=== PATIENT | female | born 1995 | race Caucasian/White ===

== ENCOUNTER 2019-09-18 22:54 | Emergency (ER) | payer OTHER, SELFPAY ==
[2019-09-18 23:05] VITALS: BP 122/75; PULSE 80; RESP 16; TEMP 35.8; O2SAT 100
--- NOTE | 2019-09-18 23:17 | ED.PREGNANCY ---
HPI - General Chief complaint: Vaginal Bleeding Stated complaint: poss miscarriage Time Seen by Provider: 09/18/19 23:09 Source: patient and RN notes reviewed Mode of arrival: ambulatory Limitations: no limitations History of Present Illness HPI Narrative: Pt is a 24 y/o female who is G3, P2, who presents to the ED with c/o vaginal bleeding starting this evening. She notes that her LMP was 08/14/19, and states that she has since had several positive and negative tests. Pt notes that she began having vaginal bleeding earlier today. She reports lower ABD cramping accompanying her bleeding, but states that her pain resolved after passing a large clot of blood. Pt notes that she is concerned she may be having a miscarriage. She currently denies any fever, chills, or vomiting. Pt follows with REHABILITATION PROGRAM MANAGER, Dr. Liang. Complaint: vaginal bleeding Onset (ago): hour(s) (several) Associated symptoms: abdominal pain (lower ABD cramping (resolved)) Vaginal bleeding: clots Date of Last Menstrual Period: 08/14/19 Related Data Allergies Allergy/AdvReac Type Severity Reaction Status Date / Time peanut Allergy Severe anaphylaxis Verified 06/04/18 01:36 Review of Systems Review of Systems: All systems reviewed & are unremarkable except as noted in HPI and below Constitutional: Constitutional: Denies chills and Denies fever(s) Gastrointestinal: Gastrointestinal: Reports abdominal pain (lower ABD cramping (resolved)) and Denies vomiting Genitourinary: Genitourinary: Reports abnormal vaginal bleeding PMFSH Past Medical History Medical History 3 UTI (urinary tract infection) Surgical History Surgical History No significant past surgical history Social History Social History Smoking status: Former smoker Gender identity (if verbalized by the patient): Female Exam Narrative: Exam Narrative: APPEARANCE: No acute distress, nontoxic, resting in bed EYES: EOMI HEENT: Normocephalic, atraumatic, OMM RESPIRATORY: No respiratory distress Clear to auscultation bilaterally with no rhonchi wheezing or rales. CARDIOVASCULAR: Regular rate and rhythm without murmurs rubs or gallops. ABDOMINAL: Soft, nontender, nondistended, no rebound or guarding MUSCULOSKELETAl: Moves all extremities. No clubbing, cyanosis or edema. NEURO: Awake and alert. Following commands, speech normal, no focal deficits SKIN:: Warm, dry. No rashes lesions or abrasions PSYCHIATRIC: Normal affect/mood, Course Course Emergency Course: Patient with normal beta-hCG in the emergency department. At this time suspect the patient has had dysfunctional uterine bleeding and will discharge to follow-up with her REHABILITATION PROGRAM MANAGER Patient has had no pain while in ED Discussed with patient results of workup and diagnosis. Discussed need for follow-up with primary care, proper use of medication, and reasons to return to the emergency department. Patient understands and agrees to current treatment plan Vital Signs Vital signs: Vital Signs Temperature 96.5 F L 09/18/19 23:05 Pulse Rate 80 09/18/19 23:05 Respiratory Rate 16 09/18/19 23:05 Blood Pressure 122/75 09/18/19 23:05 Pulse Oximetry 100 09/18/19 23:05 Temperature 96.5 F L 09/18/19 23:05 Pulse Rate 80 09/18/19 23:05 Respiratory Rate 16 09/18/19 23:05 Blood Pressure 122/75 09/18/19 23:05 Pulse Oximetry 100 09/18/19 23:05 MDM - OB/Uterine Contractions Lab Data Result diagrams: 09/18/19 23:29 09/18/19 23:29 Labs: Lab Results 09/18/19 09/18/19 Range/Units 23:29 23:29 WBC 9.5 (4.5-10.0) K/mm3 RBC 4.36 (4.2-5.4) M/mm3 Hgb 12.5 (12.0-15.0) g/dL Hct 39.2 (37.0-47.0) % MCV 89.9 (80-100) fl MCH 28.7 (26-34) pg MCHC 31.9 L (32-36) g/dl RDW 13.6 (11.5-14.5) % Plt Count 2
[2019-09-18 23:37] LABS: Basophils Absolute Auto 0.1 K/mm3 (0.0-0.1); Basophils Percent Auto 0.6 % (0.2-1.2); Eosinophils Absolute Auto 0.4 K/mm3 (0-0.3); Eosinophils Percent Auto 3.9 % (0-4.4); Hematocrit 39.2 % (37.0-47.0); Hemoglobin 12.5 g/dL (12.0-15.0); Immature Granulocyte Absolute 0.02 K/mm3 (0.00-0.031); Immature Granulocyte Percent A 0.2 % (0-0.5); Lymphocytes Percent Auto 22.2 % (18.3-44.2); Mean Corpuscular HGB Conc 31.9 g/dl (32-36); Mean Corpuscular Hemoglobin 28.7 pg (26-34); Mean Corpuscular Volume 89.9 fl (80-100); Mean Platelet Volume 12.6 fl (7.4-10.4); Monocytes Absolute Auto 0.6 K/mm3 (0.1-0.6); Monocytes Percent Auto 6.4 % (2.6-8.5); Neutrophils Absolute Auto 6.3 K/mm3 (1.3-6.7); Neutrophils Percent Auto 66.7 % (45.5-73.1); Platelet Count Result 205 k/mm3 (150-375); Red Blood Count 4.36 M/mm3 (4.2-5.4); Red Cell Distribution Width 13.6 % (11.5-14.5); White Blood Count 9.5 K/mm3 (4.5-10.0)
[2019-09-18 23:49] LABS: Blood Urea Nitrogen 12 mg/dL (7-17); Calcium 8.9 mg/dL (8.4-10.2); Carbon Dioxide 27 mmol/L (22-30); Chloride 108 mmol/L (98-107); Estimated CRCL calculation 75 ml/min; Estimated Glomerular Filt Rate > 60; Glucose 95 mg/dL (65-105); Potassium 4.1 mmol/L (3.4-5.0); Sodium 139 mmol/L (137-145)
[2019-09-19 00:06] LABS: Beta HCG Quantitative < 2.39 mIU/ML
[2019-09-19 01:45] VITALS: BP 101/77; PULSE 69; RESP 18; O2SAT 100
== END 2019-09-19 01:50 | disposition home or self-care (01) ==
PROVIDERS: Emergency Provider Emergency Medicine; PCP Obstetrics & Gynecology
DX: N93.8 Other specified abnormal uterine and vaginal bleeding (principal); Z87.440 Personal history of urinary (tract) infections; Z87.891 Personal history of nicotine dependence
CPT/HCPCS: 36415; 80048; 81025; 84702; 85025; 99283

== ENCOUNTER 2020-02-15 20:45 | Emergency (ER) | payer OTHER, SELFPAY ==
[2020-02-15 21:12] VITALS: BP 104/73; PULSE 89; RESP 18; TEMP 37; O2SAT 100
[2020-02-15 22:35] VITALS: BP 109/71; PULSE 78; RESP 16; TEMP 37.2; O2SAT 100
[2020-02-16] VITALS: RESP 17; O2SAT 100
--- NOTE | 2020-02-16 00:39 | ED.GENADULT ---
HPI - General Adult General Chief complaint: Unspecified Stated complaint: needs tested for covid Time Seen by Provider: 02/16/20 00:18 Source: patient Mode of arrival: ambulatory Limitations: no limitations History of Present Illness HPI narrative: This patient is 24 year old female who presents for evaluation of intermittent headache and runny nose. She states she has had frontal head x 2 days. Her headache resolves after taking ibuprofen. She states she has runny nose that is intermittent. Her nasal congestion and sinus pressure resolve with benadryl. She believes her issue is sinus disease as she has mild sinus pressure intremittently. She states she want to come to ER to decide if she needed a covid test. She denies fever, chest pain, sob, abdominal , nausea, vomiting. She denies loss of taste or smell. She denies sick contacts. Related Data Allergies Allergy/AdvReac Type Severity Reaction Status Date / Time peanut Allergy Severe anaphylaxis Verified 06/04/18 01:36 Review of Systems Review of Systems: All systems reviewed & are unremarkable except as noted in HPI and below Constitutional: Constitutional: Denies chills and Denies fever(s) ENT: Denies dizziness, Denies epistaxis, Reports nasal congestion and Denies sore throat Cardiovascular: Cardiovascular: Denies chest pain Respiratory: Respiratory: Denies cough, Denies dyspnea and Denies wheezing Gastrointestinal: Gastrointestinal: Denies abdominal pain, Denies diarrhea, Denies nausea and Denies vomiting Neurologic: Reports headache(s) [facility] Social History Social History (Updated 02/16/20 @ 00:44 by Jennifer Ingram MD) Smoking packs per day: 2 Smoking cigarettes per day: 40.0 Smoking status: Current every day smoker Gender identity (if verbalized by the patient): Female Exam Narrative: Exam Narrative: GENERAL: Well-appearing, well-nourished, and in no acute distress. HEAD: Normocephalic, atraumatic EYES: PERRLA and EOMI, conjunctiva clear without discharge EARS: TM's clear bilaterally without erythema or dullness NOSE: Nares clear, no rhinorrhea or epistaxis THROAT:Mucous membranes moist, Oropharynx normal without erythema, exudate, peritonsillar swelling or fluctuance NECK: Supple, without lymphadenopathy or mass RESPIRATORY: No respiratory distress, Airway patent, Respirations non-labored, Clear to auscultation without rales, rhonchi or wheeze HEART: Regular rate and rhythm. No murmur heard. Normal peripheral pulses. ABDOMEN: Soft, nontender, nondistended, normal active bowel sounds. No masses. No rebound or guarding, No organomegaly. EXTREMITIES: No edema, normal strength with full range of motion. SKIN: Warm, dry, normal color without rash NEURO: Alert and oriented x3. CN 2-12 grossly intact. No focal deficits. PSYCH: Normal mood and affect. Course Reevaluation(s) Reevaluation #1: I discussed with patient that she can be tested for covid if she wants. She has decided not to be tested. She was given return precautions. She has not complaints now. Date: 02/16/20 Time: 00:44 Vital Signs Vital signs: Vital Signs Temperature 98.6 F 02/15/20 21:12 Pulse Rate 89 02/15/20 21:12 Respiratory Rate 18 02/15/20 21:12 Blood Pressure 104/73 02/15/20 21:12 Pulse Oximetry 100 02/15/20 21:12 Temperature 98.9 F 02/15/20 22:35 Pulse Rate 97 02/16/20 01:21 Respiratory Rate 14 02/16/20 01:21 Blood Pressure 111/80 02/16/20 01:21 Pulse Oximetry 100 02/16/20 01:21 Medical Decision Making Vital Signs Vital Signs: Vital Signs Temperature 98.6 F 02/15/20 21:12 Pulse Rate 89 02/15/20 21:12 Respiratory Rate 18 02/15/20 21:12 Blood Pressure 104/73 02/15/20 21:12 Pulse Oximetry 100 02/15/20 21:12 Temperature 98.9 F 02/15/20 22:35 Pulse Rate 97 02/16/20 01:21 Respiratory Rate 14 02/16/20 01:21 Blood Pressure 111/80 02/16/20 01:21 Pulse Oximetry 100 02/16/20 01:21
[2020-02-16 01:21] VITALS: BP 111/80; PULSE 97; RESP 14; O2SAT 100
== END 2020-02-16 01:05 | disposition home or self-care (01) ==
PROVIDERS: Emergency Provider General Practice
DX: J32.9 Chronic sinusitis, unspecified (principal); F17.210 Nicotine dependence, cigarettes, uncomplicated
CPT/HCPCS: 99281

== ENCOUNTER 2024-08-09 12:50 | Emergency (ER) | payer OTHER, SELFPAY ==
--- NOTE | ~2024-08-09 | US_ITS ---
EXAMINATION: US OB follow up DATE: 08/09/2024 14:04 INDICATION: Decreased movement. TECHNIQUE: Real-time ultrasound of the pelvis was performed. COMPARISON: None. FINDINGS: There is a single living fetus in vertex presentation. The placenta is posterior and fundal. The cer vical length is 3.3 cm on transabdominal images, which is normal. heart rate is beats per minut e (bpm). The amniotic fluid volume is subjectively normal. The following biometric data were obtained: Biparietal diameter (BPD): 4.2 cm; head circumference (HC): 16.0 cm; abdominal circumference (AC): 14 .4 cm; femur length (FL): 3.0 cm. These measurements are concordant. Estimated weight is 287 g +/- 43 g, which correlates with the 66th percentile when 01/03/25 is u sed as estimated date of delivery. As single measurements, these parameters are each equal to the following estimated gestational ages: BPD: 18 weeks 5 days. HC: 18 weeks 6 days. AC: 19 weeks 5 days. FL: 19 weeks 1 days. estimated gestational age based solely on measurements from this exam is 19 weeks 1 days +/- 1 weeks 2 days. IMPRESSION: 1. Single living fetus in vertex presentation. 2. Estimated weight is 287 g +/- 43 g, which correlates with the 66th percentile when 01/03/25 is used as estimated date of delivery. Reviewed, dictated and finalized at location A. HOUSE TECHNICIAN IMPRESSION: 1. Single living fetus in vertex presentation. 2. Estimated weight is 287 g +/- 43 g, which correlates with the 66th pe rcentile when 01/03/25 is used as estimated date of delivery.
--- OUTSIDE RECORDS SUMMARY | 2024-08-09 12:55 | XMS_ITS ---
Author Organization [facility] Address [address] [place] [address] Care Team Providers Care Paper Goods Machine Operator Name Role Phone Ilda Alfredo Primary Care Provider REASON FOR VISIT appointment Encounters Encounter Location Date Provider Diagnosis [facility] [address] [place] [address] 06/19/2024 Ilda Alfredo Plan Of Treatment No Information Progress Notes * Randi KENDALLDOB:1995 (28 yo F)Acc No.[id number]:06/19/2024 Patient: Nancy Randi THOMPSON :1995 A ge:28 Y S ex:Female Address:[address] [place] [address], [id number] * true * Date: Generated for Bienvenidoi priscilla/Suzie/eTransmitting on: 0 08/09/2024 12:55 PM DAIRY MANAGER
--- OUTSIDE RECORDS SUMMARY | 2024-08-09 12:55 | XMS_ITS | Patient Health Record ---
Author Organization [facility] Address [address] [place] [address] Care Team Providers Care Play Leader Name Role Phone Ilda Alfredo Primary Care Provider Reason For Referral No Information Encounters Encounter Location Date Provider Diagnosis [facility] [address] [place] [address] 06/19/2024 Ilda Alfredo Plan Of Treatment No Information Insurance Providers Payer Name Payer Address Payer Phone Subscriber Number Group Number Insured Name Patient Relationship to Insured Coverage Start Date Coverage End Date MEDICAID [address] [place] [address] [id number] Randi Kendall Self - patient is the insured 4 MED[employer] [address] [place] [place] [address] [id number] Ross Kendallyn Self - patient is the insured 4
--- OUTSIDE RECORDS SUMMARY | 2024-08-09 12:55 | XMS_ITS ---
[facility] Address [address] [place] [address] Care Team Providers Care Child And Youth Program Assistant Name Role Phone Ilda Alfredo Primary Care Provider REASON FOR VISIT New Patient Psych Eval Encounters Encounter Location Date Provider Diagnosis [address] [address] 06/19/2024 Ilda Alfredo Plan Of Treatment No Information Progress Notes * JAVIRoss ZamarripamilanaDOB:1995 (28 yo F)Acc No.[id number]:06/19/2024 UNLOCKED PROGRESS NOTE Patient: Randi FUENTES Provider: AKASH Aldridge :1995 A ge:28 Y S ex:Female Date:06/19/2024 Address:[address] [place], [place] [id number] Subjective: * Chief Complaints: * 1 . New Patient Psych Eval. * Medical History: Objective: * Vitals: Assessment: Plan: * Treatment: * * Electronic signature of Karen Alfredo on 08/09/2024 at 12:55 PM PREMIUM CARD CANCELLATION CLERK Sign off status: Pending * Provider: AKASH Aldridge Date: Generated for Printi ng/Faxing/eTransmitting on: 0 08/09/2024 12:55 PM PREMIUM CARD CANCELLATION CLERK
[2024-08-09 13:08] VITALS: BP 109/67; PULSE 86; RESP 16; TEMP 36.7; O2SAT 100
--- NOTE | 2024-08-09 13:33 | PC.NURSE ---
Ultrasound at bedside at this time. Patient aware of need for urine sample, unable to provide at this time. Provided water.
--- NOTE | 2024-08-09 13:59 | ED_ITS ---
HPI - General Adult General Chief complaint: Recheck/Abnormal Lab/Rx Stated complaint: approx 4 mo , decreased baby movement Time Seen by Provider: 08/09/24 13:09 History of Present Illness HPI narrative: Patient is a 28-year-old who presents the ER with reports of decreased movement. Reports she felt it move 1 time today and twice a couple days ago. Patient has not had any care because she cannot make any of her visits but she did [facility] for initial confirmation of the . LMP March 2025. No vaginal bleeding. She is having some suprapubic cramping. No vaginal discharge. She reports that 1 of her children is currently living with her mother, the other 2 are with her 2 separate father's. She is currently homeless as her and her fiance have been kicked out of the friend's house where they were staying. Related Data Allergies Allergy/AdvReac Type Severity Reaction Status Date / Time peanut Allergy Severe anaphylaxis Verified 08/09/24 13:05 Review of Systems Review of Systems: All systems reviewed & are unremarkable except as noted in HPI and below Constitutional: Constitutional: Reports no additional constitutional complaints Gastrointestinal: Gastrointestinal: Reports no additional gastrointestinal complaints Genitourinary: Genitourinary: Reports no additional female genitourinary complaints [facility] Past Medical History Medical History (Updated 08/09/24 @ 15:54 by Davis Nieves MD) UTI (urinary tract infection) 3 Surgical History Surgical History No significant past surgical history Social History Social History (Updated 02/16/20 @ 00:44 by Jennifer Ingram MD) Smoking packs per day: 2 Smoking cigarettes per day: 40.0 Smoking status: Current every day smoker Gender identity (if verbalized by the patient): Female Exam Narrative: GENERAL: Well-appearing, well-nourished, and in no acute distress. HEAD: Normocephalic, atraumatic. ENT: Mucous membranes moist. CHEST: Clear to auscultation. No respiratory distress. HEART: Regular rate and rhythm. Normal peripheral pulses. ABDOMEN: Soft, uterus palpated at the level of the umbilicus and nontender, nondistended. EXTREMITIES: Normal range of motion. No edema. SKIN: Warm, dry, no rash. NEURO: Alert and oriented x3. PSYCH: Normal mood and affect. Course Course Emergency Course: Patient educated on lab and imaging results. Discharge with cephalexin. No additional concerns. Vital Signs Vital signs: Vital Signs Temperature 98.0 F 08/09/24 13:08 Pulse Rate 86 08/09/24 13:08 Respiratory Rate 16 08/09/24 13:08 Blood Pressure 109/67 08/09/24 13:08 Pulse Oximetry 100 08/09/24 13:08 Oxygen Delivery Room Air 08/09/24 13:08 Temperature 98.0 F 08/09/24 13:08 Pulse Rate 86 08/09/24 13:08 Respiratory Rate 16 08/09/24 13:08 Blood Pressure 109/67 08/09/24 13:08 Pulse Oximetry 100 08/09/24 13:08 Oxygen Delivery Room Air 08/09/24 13:08 Medical Decision Making Vital Signs Vital Signs: Vital Signs Temperature 98.0 F 08/09/24 13:08 Pulse Rate 86 08/09/24 13:08 Respiratory Rate 16 08/09/24 13:08 Blood Pressure 109/67 08/09/24 13:08 Pulse Oximetry 100 08/09/24 13:08 Oxygen Delivery Room Air 08/09/24 13:08 Temperature 98.0 F 08/09/24 13:08 Pulse Rate 86 08/09/24 13:08 Respiratory Rate 16 08/09/24 13:08 Blood Pressure 109/67 08/09/24 13:08 Pulse Oximetry 100 08/09/24 13:08 Oxygen Delivery Room Air 08/09/24 13:08 Lab Data Labs: Lab Results 08/09/24 Range/Units 15:19 Urine Color Yellow (Yellow) Urine Appearance Turbid H (Clear) Urine pH 6.5 (5.0-9.0) Ur Specific [place] 1.021 (1.001-1.035) Urine Protein Trace (Negative) mg/dL Urine Glucose (UA) Negative (Negative) mg/dL Urine Ketones 1+ H (Negative) mg/dL Ur Blood (Man) Negative (Negative) Urine Nitrate Negative (Negative) Urine Bilirubin Negative (Negative) Urine Urobilinogen 1.0 (<2.0) mg/dL Add Ur Microanalysis Reviewed Leukocyte Esterase Rfl 2+ H (Negative) LITTLE/UL Urine RBC 0-2 (0-2) /hpf Urine WBC 51-100 H (0-3) /hpf Ur Squamous Epith Cells Many H (Few) /hpf Urine Bacteria 4+ H /hpf Urine Casts 0-2 Imaging Data Radiologist's impression: ITS Impressions Obstetrics Ultrasound 08/09/24 14:06 IMPRESSION: 1. Single living fetus in vertex presentation. 2. Estimated weight is 287 g +/- 43 g, which correlates with the 66th percentile when 01/03/25 is used as estimated date of delivery. Discharge Plan Discharge Clinical Impression: UTI (urinary tract infection) Patient Disposition: Home, Self-Care Condition: Stable Instructions: Antibiotic Form, Urinary Tract Infection in Women (ED) Additional Instructions: You should return to the emergency department if you develop severe nausea and vomiting and are unable to keep liquids down, if you develop severe back/flank or stomach pain, or if your symptoms are not clearly improving at home. Your ultrasound shows a 19 week 1 day live fetus. Follow-up with OB. Patient Language: Sami Prescriptions: New cephalexin 500 mg capsule 500 mg PO QID 7 Days Qty: 28 0RF Follow-up/Referrals: Juan Jose Anglin MD [Physician] - PHYSICIAN,LINE CONSTRUCTION SUPERINTENDENT [Primary Care Provider] -
--- NOTE | 2024-08-09 14:38 | PC.NURSE ---
Patient continues to be unable to provide urine sample. Additional water provided.
--- NOTE | 2024-08-09 15:15 | PC.NURSE ---
Patient continues to be unable to provide urine sample. Requesting straight cath. Bladder scanner shows 117mLs. Pt to attempt again.
--- NOTE | 2024-08-09 15:22 | PC.NURSE ---
Urine sample provided and sent to lab.
[2024-08-09 15:47] LABS: Add Urine Microscopic? YES; Appearance Urine Turbid (Clear); Bacteria Urine 4+ /hpf; Bilirubin Urine Negative (Negative); Blood Urine Negative (Negative); Color Urine Yellow (Yellow); Glucose Urine UA Negative (Negative); Ketones Urine 1+ mg/dL (Negative); Leukocyte Esterase Ur 2+ LEU/UL (Negative); Need Manual Microscopic Reviewed; Nitrate Urine Negative (Negative); Non Pathogenic Casts 0-2; Protein Urine Trace mg/dL (Negative); RBC Urine 0-2 /hpf (0-2); Specific Grav Ur 1.021 (1.001-1.035); Squamous Epithelial Cell Urine Many /hpf (Few); WBC Urine 51-100 /hpf (0-3); pH Urine 6.5 (5.0-9.0)
== END 2024-08-09 16:24 | disposition home or self-care (01) ==
PROVIDERS: Emergency Provider Emergency Medicine
DX: O23.42 Unspecified infection of urinary tract in pregnancy, second trimester (principal); N39.0 Urinary tract infection, site not specified; O99.332 Smoking (tobacco) complicating pregnancy, second trimester; F17.210 Nicotine dependence, cigarettes, uncomplicated; Z59.00 Homelessness unspecified
CPT/HCPCS: 76816; 81001; 99284

== ENCOUNTER 2024-08-29 13:17 | Outpatient (CLI) | payer OTHER, SELFPAY ==
--- NOTE | ~2024-08-29 | US_ITS ---
EXAMINATION: US OB /maternal detail DATE: 08/29/2024 17:26 CDT INDICATION: Size and dates/anatomy scan TECHNIQUE: Real-time transabdominal obstetric ultrasound. FINDINGS: 4, para 3 There is a single intrauterine gestation in variable presentation. The placenta is posterior. The tip of the placenta is 6.25 cm from the cervix. Dedicated images of the cervix were not present on the submitted images cardiac activity and movement is noted with a heart rate of 169 beats per minute. Anatomic parameters are as follows The bladder is visualized and is unremarkable. A three-vessel cord is present. Cord insertion is demonstrated to be on the midline. Bilateral kidneys are present without hydronephrosis. The diaphragm is continuous. The cervical, thoracic and lumbar spines are covered in their entirety. choroid plexi are visualized, and unremarkable. A single lateral ventricle is visualized measuring 7.4 mm. Repeat examination to evaluate the contralateral lateral ventricle is recommended. The falx is visualized. The cerebellum is visualized measuring 20.2 mm, and is sonographically unremarkable. The cisterna magna measures 6 mm in anterior to posterior dimension (normal measurement is 2 to 10 mm ). The nuchal fold is minimally visualized and measures 4.7 mm in greatest caliber. Follow-up imaging is recommended to confirm this finding secondary to poor visualization. Cine of the four-chamber heart was performed, but with poor detail visualization. The right and left ventricular outflow tracts are not identified on the submitted images. Limited views of the arms, hands, legs and feet were performed and appear grossly unremarkable. Evaluation of the upper lip and nose confirms their continuity. Poor visualization of the stomach for which repeat examination is recommended. The following biometric data were obtained: Biparietal diameter (BPD): 4.9 cm; head circumference (HC): 18.8 cm; abdominal circumference (AC): 16.7 cm; femur length (FL): 3.6 cm. These measurements are concordant. Estimated weight is 431 g +/- 65 g, which correlates with the 28th percentile when 01/06/2025 is used as estimated date of delivery. As single measurements, these parameters are each equal to the following estimated gestational ages: BPD: 21 weeks 0 days. HC: 21 weeks 1 day AC: 21 weeks 5 days. FL: 21 weeks days. estimated gestational age based solely on measurements from this exam is 21 weeks 3 days +/- 1 week 3 days. IMPRESSION: Single intrauterine gestation with an approximate gestational age of 21 weeks and 3 days. Estimated d ue date by ultrasound is 01/06/2025. Poor visualization of the stomach for which repeat examination is recommended. Follow-up imaging is recommended to confirm the nuchal fold measurement secondary to limited visua lization. Repeat examination to evaluate the contralateral lateral ventricle is recommended. Remainder of the anatomy scan is unremarkable, and within normal limits. Reviewed, dictated and finalized at location A. IMPRESSION: Single intrauterine gestation with an approximate gestational age of 21 weeks a nd 3 days. Estimated due date by ultrasound is 01/06/2025. Poor visualization of the stomach for which repeat examination is amrik mmended. Follow-up imaging is recommended to confirm the nuchal fold measurement seco ndary to limited visualization. Repeat examination to evaluate the contralateral lateral ventricle is recomm ended. Remainder of the anatomy scan is unremarkable, and within normal limits.
--- OUTSIDE RECORDS SUMMARY | 2024-08-29 14:51 | XMS_ITS | Patient Health Record ---
Author Organization [facility] Address [address] [place] [address] Care Team Providers Care Appraiser Name Role Phone Ilda Alfredo Primary Care Provider Reason For Referral No Information Encounters Encounter Location Date Provider Diagnosis [facility] [address] [place] [address] 06/19/2024 Ilda Alfredo Plan Of Treatment No Information Insurance Providers Payer Name Payer Address Payer Phone Subscriber Number Group Number Insured Name Patient Relationship to Insured Coverage Start Date Coverage End Date MEDICAID [address] [place] [address] [id number] Randi Kendall Self - patient is the insured 4 MEDICA[employer]LEHE[employer] [address] [place] [address] [id number] Ross Kendallyn Self - patient is the insured 4
--- OUTSIDE RECORDS SUMMARY | 2024-08-29 14:52 | XMS_ITS | CONTINUITY OF CARE DOCUMENT ---
Author Name george vazquez Address Unknown Organization [facility] Address [address] [place] [address] [address] [place] [address] Phone [phone] Care Team Providers Care Advanced Manager Name Role Phone george vazquez Unavailable Unavailable INSURANCE PROVIDERS Payer name Policy type / Coverage type [place] red green party [employer] FAMILY [employer] Medicaid 1 [id number]
--- OUTSIDE RECORDS SUMMARY | 2024-08-29 14:52 | XMS_ITS ---
Author Organization [facility] Address [address] [place] [address] Care Team Providers Care Record Keeper Name Role Phone Ilda Alfredo Primary Care Provider REASON FOR VISIT New Patient Psych Eval Encounters Encounter Location Date Provider Diagnosis [address] [address] 06/19/2024 Ilda Alfredo Plan Of Treatment No Information Progress Notes * FAIZA Beckmaria doloresmilanaDOB:1995 (28 yo F)Acc No.[id number]:06/19/2024 UNLOCKED PROGRESS NOTE Patient: Randi FUENTES Provider: AKASH Aldridge :1995 A ge:28 Y S ex:Female Date:06/19/2024 Address:[address] [place], [place] [id number] Subjective: * Chief Complaints: * 1 . New Patient Psych Eval. * Medical History: Objective: * Vitals: Assessment: Plan: * Treatment: * * Electronic signature of Karen Alfredo on 08/29/2024 at 02:51 PM CDT Sign off status: Pending * Provider: AKASH Aldridge Date: Generated for Bienvenidoi ng/Faxing/eTransmitting on: 0 08/29/2024 02:51 PM CDT
--- OUTSIDE RECORDS SUMMARY | 2024-08-29 14:52 | XMS_ITS ---
Author Organization [facility] Address [address] [place] [address] Care Team Providers Care Inspector Advanced Composite Name Role Phone Ilda Alfredo Primary Care Provider REASON FOR VISIT appointment Encounters Encounter Location Date Provider Diagnosis [facility] [address] [place] [address] 06/19/2024 Ilda Alfredo Plan Of Treatment No Information Progress Notes * Randi KENDALLDOB:1995 (28 yo F)Acc No.[id number]:06/19/2024 Patient: Nancy Randi THOMPSON :1995 A ge:28 Y S ex:Female Address:[address] [place] [address], [address] * true * Date: Generated for Bienvenidoi priscilla/Suzie/eTransmitting on: 0 08/29/2024 02:52 PM CDT
== END 2024-08-29 13:18 | disposition home or self-care (01) ==
PROVIDERS: Visit Provider Obstetrics & Gynecology
DX: Z34.82 Encounter for supervision of other normal pregnancy, second trimester (principal); Z3A.21 21 weeks gestation of pregnancy
CPT/HCPCS: 76805

== ENCOUNTER 2024-11-20 17:07 | Emergency (ER) | payer OTHER, SELFPAY ==
--- OUTSIDE RECORDS SUMMARY | 2024-11-20 17:10 | XMS_ITS | Patient Health Record ---
Author Organization [facility] Address [address] [place] [address] Support Name Relationship Address Phone Randi Kendall Guarantor Unknown [phone] Reason For Referral No Information Plan Of Treatment No Information Insurance Providers Payer Name Payer Address Payer Phone Subscriber Number Group Number Insured Name Patient Relationship to Insured Coverage Start Date Coverage End Date [place] [address] [place] [address] [place] [address] [phone] [id number] Randi Kendall Self - patient is the insured
--- OUTSIDE RECORDS SUMMARY | 2024-11-20 17:10 | XMS_ITS | Patient Health Record ---
Author Organization [facility] Address [address] [place] [address] Care Team Providers Care Poiser Balance Name Role Phone Ilda Alfredo Primary Care Provider Reason For Referral No Information Encounters Encounter Location Date Provider Diagnosis [facility] [address] [place] [address] 06/19/2024 Ilda Alfredo Plan Of Treatment No Information Insurance Providers Payer Name Payer Address Payer Phone Subscriber Number Group Number Insured Name Patient Relationship to Insured Coverage Start Date Coverage End Date [facility] Attn Claims Department [address] [place] [address] [id number] LenchoBeck zamarripaRandi Self - patient is the insured 5 MEDICAID [address] [place] [address] [id number] FaizaBeckRandi Self - patient is the insured 4 5 [employer] [address] [place] [address] [id number] FaizaBeckRandi Self - patient is the insured 4 5
--- OUTSIDE RECORDS SUMMARY | 2024-11-20 17:11 | XMS_ITS ---
Author Organization [facility] Address [address] [place] [address] Care Team Providers Care Button Station Worker Name Role Phone Ilda Alfredo Primary Care Provider REASON FOR VISIT New Patient Psych Eval Encounters Encounter Location Date Provider Diagnosis [address] [address] 06/19/2024 Ilda Alfredo Plan Of Treatment No Information Progress Notes * Ross KENDALLmilanaDOB:1995 (29 yo F)Acc No.[id number]:06/19/2024 UNLOCKED PROGRESS NOTE Patient: Randi FUENTES Provider: AKASH Aldridge :1995 A ge:28 Y S ex:Female Date:06/19/2024 Address:[address] [place], [place] [id number] Subjective: * Chief Complaints: * 1 . New Patient Psych Eval. * Medical History: Objective: * Vitals: Assessment: Plan: * Treatment: * * Electronic signature of Karen Alfredo on 11/20/2024 at 05:10 PM CDT Sign off status: Pending * Provider: AKASH Aldridge Date: Generated for Bienvenidoi ng/Faxing/eTransmitting on: 0 11/20/2024 05:10 PM CDT
--- OUTSIDE RECORDS SUMMARY | 2024-11-20 17:11 | XMS_ITS | Clinical Summary ---
Author Organization [facility] Address [address] [place] [address] Care Team Providers Care Tsa Screener Name Role Phone Unavailable Primary Care Provider Unavailabl e Source Comments [facility],non-owned Affiliates and Associated Physician Practices is amultiple site organization consisting of ambulatory clinics and hospital sitesin [place], [place], [place] and [place]. This disclosure is being madepursuant to the Care Everywhere program and may not contain all information available regarding this patient. Last updated 18.[facility] Allergies Active Allergy Reactions Criticality Noted Date Comments Varma Unknown 10/02/2024 Peanut-Derived Unknown 10/02/2024 Medications * Be aware that medications may not be up to date on this document. Alwaysverify current medications with the patient. acyclovir (Zovirax) 800 MG tabletIndicatio ns:Herpes Simplex Infection Take 1 (one) tablet by mouth once daily Reasons: Herpes Simplex Infection Active Active Problems Patient Care Coordination No te Formatting of this note migh t be different from the original. Nopp/mfcc 06/2018 Problem Noted Date Diagnosed Date Evaluate anatomy not seen on prior sonogram 07/21 Abnormal quad screen -- T21 1:186 07/04/2018 Encounter for anatomic survey Uncertain dates, antepartum, second trimester Estimated Date of Delivery Comme nts Yes 01/06/2025 Based on Ultraso und Encounters Date Type Department Care Team Description 10/03/2024 9:40 AM CDT - 10/03/2024 11:59 PM CDT Hospital Encounter [facility] [address] [place] [address] Wilman Adames MD Discharge Disposition: Home or Self Care 10/03/2024 9:40 AM CDT - 10/03/2024 11:59 PM CDT Hospital Encounter [facility] [address] [place] [address] Wilman Adames MD Discharge Disposition: Home or Self Care from Last 3 Months Family History Medical History Relation Name Comments HIV/AIDS Brother Seizures Brother Cancer Father Cancer - Renal Mother Relation Name Status Comments Brother Father Mother Social History Tobacco Use Types Packs/Day Years Used Date Smoking Tobacco: Former Cigarettes 1 06/20/2023 - 06/20/2013 Tobacco Cessation:Counseling Given: Not Answered Alcohol Use Standard Drinks/Week Comments Not Currently 0 (1 standard drink = 0.6 oz pur e alcohol) Estimated Date of Delivery Comme nts Yes 01/06/2025 Based on Ultraso und Sex and Gender Information Value Date Recorded Sex Assigned at Not on file Legal Sex Female 2:45 PM [employer] PROF[employer] Gender Identity Not on file Sexual Orientation Not on file Last Filed Vital Signs Vital Sign Reading Time Taken Comments Blood Pressure 109/67 10/03/2024 10:21 AM CDT Pulse 80 10/03/2024 10:21 AM CDT Temperature - - Respiratory Rate - - Oxygen Saturation - - Inhaled Oxygen Concentration - - Weight 75.4 kg (166 lb 3.2 oz) 10/03/2024 10:21 AM CDT Height 154.9 cm (5' 1) 10/03/2024 10:21 AM CDT Body Mass Index 31.4 10/03/2024 10:21 AM CDT Plan of Treatment Health Maintenance Due Date Last Done Comments PAP SMEAR 1995 HIV SCREENING 08/31/2011 HEPATITIS C SCREENING 08/26/2014 DTAP/TDAP/TD VACCINES (1 - Tdap) 08/31/2015 HEPATITIS B VACCINE (1 of 3 - 19+ 3-dose series) 08/31/2015 COVID-19 VACCINE (2023-2 5 season) 2024 12/15/2021, 11/17/2021 DEPRESSION SCREENING 06/20/2024 OB-ONE HOUR GLUCOSE 09/30/2024 OB-TDAP CURRENT 10/07/2024 OB-RHOGAM INJECTION 10/14/2024 INFLUENZA VACCINE (Season Ended) 2025 ZOSTER VACCINE (1 of 2) 2046 HIB VACCINE Aged Out No longer eligi ble based on patient's age to complete this topic HPV VACCINE Aged Out No longer eligi ble based on patient's age to complete this topic MENINGOCOCCAL (Group B) VACCINE SHARED DECISION-MAKING Aged Out No longer eligible based on patient's age to complete this topic MENINGOCOCCAL GROUPS A/C/Y/W VACCINE Aged Out No longer eligible b ased on patient's age to complete this topic PNEUMOCOCCAL VACCINE Aged Out No long er eligible based on patient's age to complete this topic Respiratory Syncytial Virus (RSV) Vaccine Pt: or over 60 yrs (No Doses Required) Completed Procedures Procedure Name Priority Date/Time Associated Diagnosis Comments SONOGRAM - COMPLETE Routine 10/03/2024 1 0:36 AM CDT History of History of hemorrhage, currently in second trimester (HCC) Encounter for anatomic survey (HCC) Late care affecting in second trimester ([facility]) from Last 3 Months Results * SONOGRAM - COMPLETE (10/03/2024 10:36 AM CDT) Linked Results Indication ======== Suboptimal & questionable anatomy on outside scan Late care (PNC) History ====== OB History 4. Para 3 [id number] 1. live 2016. Gest. age 39 w + 0 d. Weight 2,920 g. Sex of child: male. Details: VAVD 2. live 2018. Gest. age 38 w + 0 d. Weight 3,090 g. Sex of child: male. Details: C/S 3. live 2020. Gest. age 39 w + 0 d. Weight 2,749 g. Sex of child: female. Details: C/S Lab Tests Test Date Result Not Performed Maternal Assessment Physical Exam Height 155 cm, 5 ft 1 in. Weight 75 kg, 166 lb. Initial weight 72 kg, 159 lb. BMI 31.37 kg/m . Initial BMI 30.04 kg/m . Weight gain 3 kg, 7 lb Method ====== Transabdominal ultrasound. View: Good view ========= Curiel . Number of fetuses: 1 Dating ====== Date Details Gest. age VALE LMP 03/29/2024 Cycle: irregular cycles, Late PNC 26 w + 6 d 01/03/2025 Stated VALE 26 w + 3 d 01/06/2025 Previous U/S 08/29/2024 GA, GA 21 w + 3 d 26 w + 3 d 01/06/2025 U/S 10/03/2024 based upon AC, BPD, Femur, HC 26 w + 1 d 01/08/2025 Assigned dating based on stated VALE, selected on 10/03/2024 26 w + 3 d 01/06/2025 General Evaluation Cardiac activity present. FHR 145 bpm. Presentation: breech Placenta: Placental site: anterior Umbilical cord: Cord vessels: 3 vessel cord. Insertion site: normal insertion Amniotic fluid: Amount of AF: polyhydramnios. MVP 8.1 cm Biometry BPD 63.8 mm 25w 6d 20% Hadlock HC 237.2 mm 25w 5d 9% Hadlock Cerebellum tr 29.4 mm 30% [place] AC 220.6 mm 26w 4d 44% Hadlock Femur 48.8 mm 26w 3d 34% Hadlock Humerus 46.7 mm 27w 4d 78% Imelda HC / AC 1.08 -/- Hadlock Weight Calculation: EFW 925 g 35% Hadlock EFW (lb,oz) 2 lb 1 oz EFW by Hadlock ([id number]) appropriate Growth Overview Exam date GA BPD (mm) HC (mm) AC (mm) FL (mm) HL (mm) EFW (g) 10/03/2024 26w 3d 63.8 20% 237.2 9% 220.6 44% 48.8 34% 46.7 78% 925 35% Anatomy Face Profile: nasal bone present. The following structures appear normal: Head / Neck Cranium. Lateral ventricles. Choroid plexus. Midline falx. Cavum septi pellucidi. Cerebellum. Cisterna magna. Thalami. Face Lips. Nose. Orbits. Heart / Thorax 4-chamber view. RVOT view. LVOT view. 3-vessel view. 7-pnvpmd-clbytkq view. Situs. Aortic arch view. Bicaval view. Ductal arch view. Interventricular septum. Great vessels. Right lung. Left lung. Diaphragm. Abdomen Cord insertion. Stomach. Kidneys. Bladder. Bowel. Genitals. Spine Cervical spine. Thoracic spine. Lumbar spine. Sacral spine. Extremities / Skeleton Arms. Hands. Legs. Feet. sex: male. Maternal Structures Right Ovary Not visualized Appearance: Adnexa appears normal Left Ovary Not visualized Appearance: Adnexa appears normal Impression ========= * Curiel IUP at 26 weeks of gestation by stated EDC * Referred to [facility] for obstetrical U/S & request for consult secondary to: Possible anomalies on outside scan Late entry into care * Other relevant clinical diagnoses include: History of anxiety & depression Tobacco use disorder Prior C/S x2 Genital HSV * Today's ultrasound (U/S) findings: Living curile intrauterine fetus growth is in the normal range Amniotic fluid volume (AFV) is borderline increased Placenta is posterior & clear of the internal cervical os Comprehensive anatomic survey appears normal stomach is visualized in abdominal LUQ and is subjectively below average size PAST MEDICAL & OBSTETRICAL HISTORY * Medications: vitamins & see PMH below * Past Medical History (PMH): No CHTN, no DM, no thyroidopathy, no asthma, no VTE, no SLE Pre- obesity Class I, BMI = 30.0-34.9 Genital herpes simplex virus (HSV), on valacyclovir (Valtrex) Anxiety & depression, currently on no meds * Past Surgical History: 0 * Past Obstetrical History: G1: VAVD 39 wk 2920 gm G2: C/S 38 wk 3090 gm G3: C/S 39 wk 2750 gm G4: Current , late PNC, no genetic screening * Family history of anomalies, syndromes or developmental delay: FOB autism & DM * Social History: Tobacco use disorder, was 2 PPD, states now ~ 1 cigarette/day * Physical Examination: BP = 109/67 mmHg, P = 80 bpm * Lab today urine dipstick: glucose (0), ketones (0), protein (trace), blood (0), leukocytes (0) COUNSELING & RECOMMENDATIONS * While no specific anomalies are identified, a small stomach with borderline increased AFV could be associated with underlying TE fistula. She opts to have cf-DNA ordered today. Screening for GDM is advised as well. Follow-up U/S in 4 weeks with MFM. * Smoking risks were discussed & cessation was strongly encouraged. * Fragile X Syndrome screening of the FOB was offered. * Consider Mold Inspector consult. COMMENTS * Thank you very much for requesting [facility] participation in her obstetrical care * Findings were explained & questions were addressed & precautions were given to patient * U/S does not detect all structural, genetic & functional [id number] ental abnormalities * Telemedicine services were performed for this U/S examination & MFM consultation Patient's identity was confirmed at the [facility] office Appropriateness of the telehealth consult was confirmed Informed consent for telemedicine services was obtained & scanned into EMR Modality was secure interactive audio-video session using [employer] Patient site location was [facility] & nurse presenter was Ann Mason Distant site provider was Wilman Adames MD & location was home office New consult = 45 minutes total, including record review & counseling & coordination of care Follow-up ======== Follow-up U/S in 4 weeks Coding ====== Procedures [id number]: US Preg Uterus Detailed Hail Varsity PACS Anatomical Region Laterality Modality Other 10/03/2024 10:3 6 AM CDT us Avtar Gifford MD [facility] ORDERABLES Edited Result - Final from Last 3 Months Insurance
--- OUTSIDE RECORDS SUMMARY | 2024-11-20 17:11 | XMS_ITS | CONTINUITY OF CARE DOCUMENT ---
Author Name george vazquez Address Unknown Organization [facility] Address [address] [place] [address] [address] [place] [address] Phone [phone] Care Team Providers Care Educational Resource Coordinator Name Role Phone george vazquez Unavailable Unavailable INSURANCE PROVIDERS Payer name Policy type / Coverage type [place] [employer] FAMILY [employer] Medicaid 1 [id number]
[2024-11-20 17:23] VITALS: BP 102/63; PULSE 109; RESP 16; TEMP 36.5; O2SAT 100
--- NOTE | 2024-11-20 17:55 | ECG_ITS ---
Test Date: 2024-11-20 19:33:41 Measurements Intervals [place] Rate: 75 P: 24 MO: 135 QRS: 1 QRSD: 85 T: 5 QT: 346 QTc: 387 Interpretive Statements SINUS RHYTHM DELAYED PRECORDIAL R/S TRANSITION BORDERLINE ECG No previous ECG available for comparison Electronically Signed On 11-21-2024 06:28:49 CDT by Wenceslao Catherine D.O.
--- NOTE | 2024-11-20 17:57 | ED_ITS ---
HPI - Syncope General Chief Complaint: Syncope Stated Complaint: 33 WKS PREG, syncope Time Seen by Provider: 11/20/24 17:54 Source: patient and family Mode of arrival: ambulatory Limitations: no limitations History of Present Illness HPI narrative: Patient is a 29 y/o female who presents to the ED with c/o near syncope. Patient is and currently 33 weeks gestation, sees Dr. Anglin. Significant other at bedside assisted in providing information. Reports patient was outside in the heat today and began feeling very dizzy, lightheaded. [place] near syncopal. She had several episodes of this. They moved her to an air-conditioned area and she felt improved, but began having near syncopal symptoms again as soon if she went back outside. She states her vision may have gone black for a second but she never fully lost consciousness. Denies feeling dizzy or lightheaded currently. Denies significant SOB. Denies chest pain. Denies cough or cold symptoms. Denies fevers. Denies pain or swelling in legs. Denies vaginal bleeding. Denies leakage of fluid. She does admit to intermittent abdominal cramping over the past few weeks. States the cramping will occur at random times, last for few hours at a time. Patient states she was told at the [facility] office today that her iron was low. Related Data Home Medications ?Medication ?Instructions ?Recorded ?Confirmed ?Last Taken ?Type acyclovir 400 mg tablet 400 mg PO DAILY 08/27/24 08/27/24 Unknown History Allergies Allergy/AdvReac Type Severity Reaction Status Date / Time peanut Allergy Severe anaphylaxis Verified 08/09/24 13:05 cherries AdvReac Severe Hives Uncoded 08/27/24 14:26 Review of Systems 2 Review of Systems: All systems reviewed & are unremarkable except as noted in HPI. All systems reviewed & are unremarkable except as noted in HPI and below PMFSH Past Medical History Medical History HSV-2 infection UTI (urinary tract infection) 3 Surgical History Surgical History Delivery by section (11/21/18) Delivery by section (05/01/21) No significant past surgical history Social History Social History Smoking packs per day: 2 Smoking cigarettes per day: 40.0 Smoking status: Current every day smoker Alcohol intake: never Substance use: never Substance use type: does not use Do You Feel Safe in your Home?: Yes Lack of Transportation: No Lack of Food: Never True Current Housing: Decline to Answer Concerned About Future Housing: Decline to Answer Difficulty Paying Gas/Electric Bills: Decline to Answer Difficulty Paying for Meds: Decline to Answer Currently Unemployed: Decline to Answer Education: Decline to Answer Difficulty w/ Childcare or Family Care: Decline to Answer Living arrangements: other Additional living arrangements comments: Occupation/Education: unemployed Gender identity (if verbalized by the patient): Female Sexual Orientation (if Verbalized by the Patient): Straight or Heterosexual Exam 2 Narrative: GENERAL: Mildly unkempt appearing, well-nourished, non-toxic, in no acute distress. HEAD: Normocephalic, atraumatic. RESPIRATORY: Airway patent, respirations nonlabored. Clear to auscultation bilaterally, no rales, rhonchi, wheezing. No focal lung sounds CARDIOVASCULAR: Regular rate and rhythm without murmurs, rubs, or gallops. ABDOMINAL: Uterus gravid. Nontender. Active movement. MUSCULOSKELETAL: Moves all extremities. No gross deformities. No peripheral edema SKIN: Warm, dry, normal color. NEURO: A&O X3. Speech clear. Cranial nerves II-XII grossly intact. Steady gait. No ataxic movements. No focal deficits. PSYCHIATRIC: Appropriate mood and affect. Normal interaction. Course Vital Signs Vital signs: Vital Signs Temperature 97.7 F 11/20/24 17:23 Pulse Rate 109 H 11/20/24 17:23 Respiratory Rate 16 11/20/24 17:23 Blood Pressure 102/63 11/20/24 17:23 Pulse Oximetry 100 11/20/24 17:23 Oxygen Delivery Room Air 11/20/24 17:23 Temperature 97.7 F 11/20/24 17:23 Pulse Rate 85 11/20/24 22:10 Respiratory Rate 15 11/20/24 22:10 Blood Pressure 110/78 11/20/24 22:10 Pulse Oximetry 99 11/20/24 22:10 Oxygen Delivery Room Air 11/20/24 17:23 MDM - Syncope MDM Narrative Medical decision making narrative: Patient presented to ED with multiple near syncopal episodes today. Currently 33 weeks gestation. Patient mildly tachycardic upon arrival. In no acute distress. Does admit to being out in the heat today. Orthostatic vital signs were evaluated and positive. Fluids were initiated. EKG w/o concerning changes Cbc without leukocytosis. Hemoglobin 9.8. No recent records to compare to. Patient denies any recent bleeding. CMP with bicarb of 20. No anion gap. Stable kidney function. Stable electrolytes. Magnesium borderline at 1.6. Given IV replacement. Troponin undetectable. UA with 2+ leuk esterase with 6- 10 WBC, 1+ urine bacteria, though there is moderate squamous cells. Will send for culture. Will treat given status. Will Rx macrobid OB came to perform NST on patient, which was reassuring. No evidence of labor. Ob nurse notified Dr. Cal Fu (on-call for Dr. Anglin) and advised okay for discharge home with return precautions and close outpatient follow-up. Suspect orthostatic hypotension, dehydration, heat environment causing symptoms today. She denies significant shortness of breath or chest pain. I have very low suspicion for PE or other cardiopulmonary process. She is feeling improved after fluid administration in the ED. Advised patient to stay very well hydrated at home, discussed taking frequent breaks from the heat if she is to be in the heat for a prolonged period. Recommended close follow-up with OBGYN. Given return precautions. She agrees with plan. Discharged in stable condition. Medical Records Attestation: I reviewed the patient's medical records. Lab Data Attestation: I reviewed the patient's lab results. 11/20/24 19:01 11/20/24 19:01 Labs: Lab Results 11/20/24 11/20/24 Range/Units 19:01 19:46 WBC 9.0 (4.5-10.0) K/mm3 RBC 3.47 L (4.2-5.4) M/mm3 Hgb 9.8 L (12.0-15.0) g/dL Hct 30.3 L (37.0-47.0) % MCV 87.3 (80-100) fl MCH 28.2 (26-34) pg MCHC 32.3 (32-36) g/dl RDW 13.2 (11.5-14.5) % Plt Count 193 (150-375) k/mm3 MPV 11.2 H (7.4-10.4) fl Immature Gran % (Auto) 0.8 H (0-0.5) % Neut % (Auto) 80.7 H (45.5-73.1) % Lymph % (Auto) 11.7 L (18.3-44.2) % [place] % (Auto) 6.0 (2.6-8.5) % Eos % (Auto) 0.6 (0-4.4) % Baso % (Auto) 0.2 (0.2-1.2) % Lymph # (Auto) 1.05 (0.9-3.2) K/mm3 [place] # (Auto) 0.5 (0.1-0.6) K/mm3 Eos # (Auto) 0.1 (0-0.3) K/mm3 Baso # (Auto) 0.0 (0.0-0.1) K/mm3 Abs Immat Gran (auto) 0.07 H (0.00-0.031) K/mm3 Absolute Neuts (auto) 7.3 H (1.3-6.7) K/mm3 Absolute Nucleated RBC 0.000 (0.0-0.012) K/mm3 Nucleated RBC % 0.0 (0.0-0.2) % PT 13.2 (11.1-14.7) Seconds INR 1.0 APTT 27.3 (22.3-36.8) Seconds Sodium 134 L (137-145) mmol/L Potassium 3.7 (3.4-5.0) mmol/L Chloride 108 H (98-107) mmol/L Carbon Dioxide 20 L (22-30) mmol/L Anion Gap 6 (4-12) mmol/L BUN 11 (7-17) mg/dL Creatinine 0.67 L (0.7-1.0) mg/dL Estim Creat Clear Calc 100 ml/min Estimated GFR > 60 (59 - ) Glucose 110 (65-110) mg/dL Calcium 8.5 (8.4-10.2) mg/dL Magnesium 1.6 (1.6-2.3) mg/dL Total Bilirubin 0.2 (0.2-1.3) mg/dL AST 22 (14-36) U/L ALT 15 (6-35) U/L Alkaline Phosphatase 125 (38-126) U/L Troponin I < 0.012 (0.000-0.034) ng/mL Total Protein 6.6 (6.3-8.2) g/dL Albumin 3.3 L (3.5-5.1) g/dL Urine Color Yellow (Yellow) Urine Appearance Clear (Clear) Urine pH 6.0 (5.0-9.0) Ur Specific [place] 1.022 (1.001-1.035) Urine Protein Trace (Negative) mg/dL Urine Glucose (UA) Negative (Negative) mg/dL Urine Ketones Negative (Negative) mg/dL Ur Blood (Man) Negative (Negative) Urine Nitrate Negative (Negative) Urine Bilirubin Negative (Negative) Urine Urobilinogen 0.2 (<2.0) mg/dL Leukocyte Esterase Rfl 2+ H (Negative) LITTLE/UL Urine RBC 0-2 (0-2) /hpf Urine WBC 6-10 H (0-3) /hpf Ur Squamous Epith Cells Moderate (Few) /hpf Urine Bacteria 1+ H /hpf Urine Casts 0-2 Blood Type O Positive Antibody Screen Negative ECG Data EKG #1: Attestation: I personally reviewed and interpreted this ECG as follows: ECG completion date: 11/20/24 ECG completion time: 19:33 EKG Interpretation: normal rate (75), sinus rhythm and non-specific ST changes Discharge Plan Discharge Clinical Impression: Near syncope, Orthostatic hypotension, 33 weeks gestation of , Asymptomatic bacteriuria during Anemia affecting Qualifiers: Trimester: third trimester Qualified Code(s): O99.013 - Anemia complicating , third trimester Patient Disposition: Home Condition: Stable Instructions: Antibiotic Form, Dehydration (ED), Near Syncope (ED), at 31 to 34 Weeks (ED) Additional Instructions: Stay very well hydrated at home. Recommend breaks in cold environment if you need to be outside for prolonged period. Your urine showed signs of possible infection. Take antibiotics as prescribed. Follow-up with your OBGYN for further evaluation. Return to the ED for new or worsening concerns, passing out, chest pain, difficulty breathing, unable to keep down food or drink, vaginal bleeding, severe abdominal pain, or any other symptoms of concern. Patient Language: Arabic Prescriptions: New nitrofurantoin monohyd/m-cryst 100 mg capsule 100 mg PO Q12H 5 Days Qty: 10 0RF Rx Instructions: must administer with a meal/food No Action acyclovir 400 mg tablet 400 mg PO DAILY cephalexin 500 mg capsule 500 mg PO QID 7 Days Qty: 28 0RF Follow-up/Referrals: Juan Jose Anglin MD [Primary Care Provider] - Time of Disposition: 21:56
[2024-11-20 19:11] LABS: Basophils Percent Auto 0.2 % (0.2-1.2); Eosinophils Absolute Auto 0.1 K/mm3 (0-0.3); Eosinophils Percent Auto 0.6 % (0-4.4); Hematocrit 30.3 % (37.0-47.0); Hemoglobin 9.8 g/dL (12.0-15.0); Immature Granulocyte Absolute 0.07 K/mm3 (0.00-0.031); Immature Granulocyte Percent A 0.8 % (0-0.5); Lymphocytes Absolute Auto 1.05 K/mm3 (0.9-3.2); Lymphocytes Percent Auto 11.7 % (18.3-44.2); Mean Corpuscular HGB Conc 32.3 g/dl (32-36); Mean Corpuscular Hemoglobin 28.2 pg (26-34); Mean Corpuscular Volume 87.3 fl (80-100); Mean Platelet Volume 11.2 fl (7.4-10.4); Monocytes Absolute Auto 0.5 K/mm3 (0.1-0.6); Neutrophils Absolute Auto 7.3 K/mm3 (1.3-6.7); Neutrophils Percent Auto 80.7 % (45.5-73.1); Platelet Count Result 193 k/mm3 (150-375); Red Blood Count 3.47 M/mm3 (4.2-5.4); Red Cell Distribution Width 13.2 % (11.5-14.5)
[2024-11-20 19:21] LABS: Alanine Aminotransferase 15 U/L (6-35); Albumin Level 3.3 g/dL (3.5-5.1); Alkaline Phosphatase 125 U/L (38-126); Anion Gap 6 mmol/L (4-12); Aspartate Amino Transferase 22 U/L (14-36); Bilirubin,Total 0.2 mg/dL (0.2-1.3); Blood Urea Nitrogen 11 mg/dL (7-17); Calcium 8.5 mg/dL (8.4-10.2); Carbon Dioxide 20 mmol/L (22-30); Chloride 108 mmol/L (98-107); Estimated CRCL calculation 100 ml/min; Estimated Glomerular Filt Rate > 60; Glucose 110 mg/dL (65-110); Magnesium 1.6 mg/dL (1.6-2.3); Potassium 3.7 mmol/L (3.4-5.0); Sodium 134 mmol/L (137-145); Total Protein 6.6 g/dL (6.3-8.2)
[2024-11-20 19:27] VITALS: BP 108/81; PULSE 89; RESP 17; O2SAT 99
--- NOTE | 2024-11-20 19:27 | PC.NURSE ---
Assumed care of patient after receiving bedside report from YENIFER Ruiz & YENIFER Otoole @ [phone]
[2024-11-20 19:32] LABS: Troponin I < 0.012 ng/mL (0.000-0.034)
[2024-11-20 19:36] VITALS: BP 104/76; BP 98/68; PULSE 86; PULSE 94
[2024-11-20 19:37] VITALS: BP 112/75; PULSE 109
[2024-11-20] MEDS: MAGNESIUM SULF 2 GM/WATER 50ML 2 GM/50 ML BAG IVPB (19:49)
[2024-11-20 19:51] LABS: Prothrombin Time 13.2 Seconds (11.1-14.7)
[2024-11-20 19:52] LABS: Partial Thromboplastin Time 27.3 Seconds (22.3-36.8)
[2024-11-20] MEDS: SODIUM CHLORIDE 0.9% IV 1,000 ML 999 ML IV CONT ×2 (19:54)
[2024-11-20 21:18] VITALS: BP 102/61; PULSE 85
--- NOTE | 2024-11-20 21:25 | PC.NURSE ---
1921-RN notified Cal Fu MD of patient being in the ER and her complaints. RN notified MD of NST results and vital signs. MD stated he was fine with patient being d/c to home with routine precautions and to have her follow up in the office. 1923- RN notified ED charge nurse of Dr. Cal Fu's orders.
[2024-11-20 21:40] LABS: Add Urine Microscopic? YES; Appearance Urine Clear (Clear); Bacteria Urine 1+ /hpf; Bilirubin Urine Negative (Negative); Blood Urine Negative (Negative); Color Urine Yellow (Yellow); Glucose Urine UA Negative (Negative); Ketones Urine Negative (Negative); Leukocyte Esterase Ur 2+ LEU/UL (Negative); Nitrate Urine Negative (Negative); Non Pathogenic Casts 0-2; Protein Urine Trace mg/dL (Negative); RBC Urine 0-2 /hpf (0-2); Specific Grav Ur 1.022 (1.001-1.035); Squamous Epithelial Cell Urine Moderate /hpf (Few); Urobilinogen Urine 0.2 mg/dL (<2.0)
[2024-11-20 22:10] VITALS: BP 110/78; PULSE 85; RESP 15; O2SAT 99
== END 2024-11-20 22:20 | disposition home or self-care (01) ==
PROVIDERS: Emergency Provider Physician Assistant; PCP Obstetrics & Gynecology
DX: O26.893 Other specified pregnancy related conditions, third trimester (principal); R55 Syncope and collapse; Z3A.33 33 weeks gestation of pregnancy; O99.333 Smoking (tobacco) complicating pregnancy, third trimester; F17.210 Nicotine dependence, cigarettes, uncomplicated
CPT/HCPCS: 36415; 80053; 81001; 83735; 84484; 85025; 85610; 85730; 86850; 86900; 86901; 87086; 93005; 96365; 99284; J3475; J7030